=== PATIENT | female | born 1980 | race African-American/Black ===

== ENCOUNTER 2016-02-18 04:22 | Emergency (ER) ==
[2016-02-18 04:37] VITALS: BP 131/81
[2016-02-18 04:52] LABS: URINE SOURCE CLEAN CATCH
[2016-02-18 05:39] LABS: BILIRUBIN URINE NEGATIVE (NEGATIVE); BLOOD URINE NEGATIVE (NEGATIVE); CLARITY CLEAR (CLEAR); COLOR YELLOW; GLUCOSE URINE NEGATIVE (NEGATIVE); LEUKOCYTES URINE NEGATIVE (NEGATIVE); NITRITE URINE NEGATIVE (NEGATIVE); PROTEIN URINE NEGATIVE (NEGATIVE); SP GRAVITY URINE 1.015; UROBILINOGEN URINE NORMAL
--- NOTE | 2016-02-18 07:05 | PROVIDER DOCUMENTATION ---
HPI-General Adult - General Chief Complaint: Flank Pain Stated Complaint: FLANK PAIN Time Seen by Provider: 02/18/16 06:13 Source: patient, family Allergies/Adverse Reactions: Patient Allergies Allergy/AdvReac Type Severity Reaction Status Date / Time amoxicillin Allergy RASH Verified 02/18/16 04:37 - History of Present Illness -Gen Adult Nature of Presenting Problems: Reports R mid/lateral back pain since 1 week ago w/o radiation. Reports she can feel the pain there and it bothers her. Denies F/C/N/V/dysuria Location of Pain/Injury: reports: back (R) Pain Radiation: reports: no radiation Quality of Pain: reports: aching Severity: reports: mild Onset/Duration: reports: 1 week ago Timing: reports: still present Context/Activities at Onset: reports: none Modifying Factors: improves with: nothing, analgesics Associated Symptoms: reports: back/neck pain Similar Symptoms Previously?: No Recently seen or treated by another doctor?: No Review of Systems - Adult - REVIEW OF SYSTEMS - ADULT Constitutional: reports: no symptoms reported Eyes: reports: no symptoms reported Ears, Nose, Mouth & Throat: reports: no symptoms reported Cardiovascular: reports: no symptoms reported Respiratory: reports: no symptoms reported Gastrointestinal: reports: no symptoms reported Genitourinary: reports: no symptoms reported Musculoskeletal: reports: see HPI, back pain Neurological: reports: no symptoms reported Psychiatric: reports: no symptoms reported Hematologic/Lymphatic: reports: no symptoms reported Allergic/Immunologic: reports: no symptoms reported All Other Systems: Reviewed and Negative Past History - Adult - PAST MEDICAL HISTORY-ADULT Major Childhood Illnesses: reports: denies history Cardiovascular: reports: denies history Respiratory: reports: denies history Gastrointestinal: reports: denies history Obstetrical/Gynecological: reports: denies history Genitourinary: reports: denies history Musculoskeletal: reports: denies history Neurological: reports: denies history Endocrine/Immune: reports: denies history Other Conditions: reports: denies history - FAMILY HISTORY Family History: reviewed, not pertinent Physical Exam-General - PHYSICAL EXAM-ADULT Initial Vital Signs Reviewed: Yes - CONSTITUTIONAL General Appearance: appears well, alert, no apparent distress - HEAD, EARS, NOSE, MOUTH & THROAT HENMT: normocephalic/atraumatic, moist mucous membranes - NECK Neck: non-tender, full range of motion, supple - RESPIRATORY Respiratory: chest non-tender, lungs clear, normal breath sounds, no pleuratic chest pain - CARDIOVASCULAR Cardiovascular: normal peripheral pulses, regular rate, rhythm, no edema, no gallop - GASTROINTESTINAL (ABDOMEN) Abdominal Exam: normal bowel sounds, non tender, soft, no organomegaly - MUSCULOSKELETAL Back Exam: normal inspection, no CVA tenderness, muscle spasm, other (R lateral mild back area localized mild tenderness with muscel spasm.). negative: CVA tenderness Extremity: normal range of motion, non-tender, normal gait - SKIN Integumentary: normal color, normal turgor, warm/dry, abrasion(s) - NEUROLOGIC Neurologic: grossly normal, no motor/sensory deficits, abnormal cerebellar tests - PSYCHIATRIC Psych/Mental Status: normal mood/affect, normal thought content, normal thought process, oriented x 3 Progress - PLAN OF CARE/RESULTS Progress/Plan/Lab Results: Laboratory Results - last 24 hr 02/18/16 04:40 Urine Source CLEAN CATCH Urine Color YELLOW Urine Clarity CLEAR Urine pH 6.0 Ur Specific [place] 1.015 Urine Protein NEGATIVE Urine Ketones NEGATIVE Urine Blood NEGATIVE Urine Nitrite NEGATIVE Urine Bilirubin NEGATIVE Urine Urobilinogen NORMAL Urine WBC NEGATIVE Urine Glucose NEGATIVE Vital Signs Temp Pulse Resp BP Pulse Ox 02/18/16 04:33 97.4 F L 77 18 131/81 99 amoxicillin Allergy (Verified 02/18/16 04:37) RASH PATIENT STATES VAGINAL YEAST INFECTION No Home Medications 02/18/16 Laboratory 02/18/16 04:40 Urine Source CLEAN CATCH Urine Color YELLOW Urine Clarity CLEAR Urine pH 6.0 Ur Specific [place] 1.015 Urine Protein NEGATIVE Urine Ketones NEGATIVE Urine Blood NEGATIVE Urine Nitrite NEGATIVE Urine Bilirubin NEGATIVE Urine Urobilinogen NORMAL Urine WBC NEGATIVE Urine Glucose NEGATIVE Orders Category Date Time Status RENAL STONE SEARCH [CT] Stat Exams 02/18/16 06:32 Draft URINALYSIS DIPSTICK ONLY PL [URINALYSIS] Stat Lab 02/18/16 04:40 Completed - REASSESSMENT Reassessment #1 Time Reassessed: 07:38 Status: improving - CT/MRI 1 CT Study: Renal Stone CT Results: NAD, see reports for details Departure - Departure Time of Disposition Order: 07:39 DIAGNOSIS: Kidney stone on right side Back pain Qualifiers: Back pain location: back pain in other location Chronicity: acute Qualified Code(s): M54.9 - Dorsalgia, unspecified Disposition: HOME 01 Certified Medical Emergency: Emergent Condition: Stable Additional Instructions: Follow up with regular MD in 2-3 days. Return to ER if your symptoms worsen. Prescriptions: Cyclobenzaprine [Flexeril] 10 mg PO HS #20 tablet Naproxen [Naprosyn] 500 mg PO BID #20 tablet Referrals: None,PCP [Primary Care Provider] -
--- NOTE | 2016-02-18 07:27 | Diag Imaging Result Document ---
PROCEDURE NAME: RENAL STONE SEARCH - 02/18/2016 CT ABDOMEN AND PELVIS: COMPARISON: None. FINDINGS: There is a 2 mm nonobstructing right renal stone. No hydronephrosis or hydroureter. There is a 3 cm simple cyst of the right ovary. No free fluid. Uterus is absent. Urinary bladder and rectum are normal. No bowel obstruction or inflammation. Normal appendix. Bony structures are intact. IMPRESSION: 1. Right nephrolithiasis. 2. Right ovarian cyst measuring 3 cm.
== END 2016-02-18 08:10 | disposition home or self-care (01) ==
LOC: P.ED 04:22
DX: N20.0 Calculus of kidney (principal); M54.9 Dorsalgia, unspecified; M62.838 Other muscle spasm
CPT/HCPCS: 74176; 81003